=== PATIENT | female | born 1960 | race Caucasian/White ===

== ENCOUNTER → 2017-01-07 | Outpatient (CLI) | payer MEDICARE | LOC: SL 11:02 | DX: G43.709 Chronic migraine without aura, not intractable, without status migrainosus (principal); G47.30 Sleep apnea, unspecified; I10 Essential (primary) hypertension; E78.5 Hyperlipidemia, unspecified; Z82.49 Family history of ischemic heart disease and other diseases of the circulatory system | CPT/HCPCS: G0399-TC ==

== ENCOUNTER → 2017-01-26 | Outpatient (CLI) | payer MEDICARE ==
[2017-01-26 09:10] LABS: BUN 15 mg/dL (7-18)
[2017-01-26 09:14] LABS: GFR (ESTIMATED) 74 ML/MIN (59-)
--- NOTE | 2017-01-27 15:18 | RADIOLOGY REPORT PS360 ---
MRA-HEAD W/O HISTORY: CHRONIC MIGRAINE, FAMILY HX BRAIN ANEURYSM Patient Age: 56 years: Female Ordering Physician: ABBY CRUZ TECHNIQUE: 2-D TOF MRA brain. 3-D Volume rendering reconstruction images performed on MRI workstation with horizontal and vertical rotation vascular image sets included. In addition to raw data and thick MIPP mages COMPARISON :None available FINDINGS . Good visualization [place] and intracranial arterial structures. . No aneurysm. No vascular malformation evident. Right & left carotid siphon appear normal. Slightly ectatic but with normal normal branching of the internal carotid arteries bilaterally. Normal middle cerebral artery on] bilaterally. The vessels in the sylvian fissure region nicely visualized and unremarkable. . Anterior cerebral arteries patent bilaterally with patent A1 segment bilaterally. Tiny anterior communicating artery satisfactory factory. Left vertebral artery is larger than the right. These join to form the normal appearing basilar artery.. #The right posterior cerebral artery merely arises from the right posterior communicating artery with minimal contribution from the basilar artery as well. The left posterior cerebral artery abdomen is mainly supplied from the basilar artery, with little if any contribution from posterior communicating. IMPRESSION Normal MRI of brain. Good quality study. No evidence of aneurysm,. No vascular malformation. Minor Anatomical variations details at [place] as discussed in text
--- NOTE | 2017-01-27 15:18 | RADIOLOGY REPORT PS360 ---
MRA-HEAD W/O HISTORY: CHRONIC MIGRAINE, FAMILY HX BRAIN ANEURYSM Patient Age: 56 years: Female Ordering Physician: ABBY CRUZ TECHNIQUE: 2-D TOF MRA brain. 3-D Volume rendering reconstruction images performed on MRI workstation with horizontal and vertical rotation vascular image sets included. In addition to raw data and thick MIPP mages COMPARISON :None available FINDINGS . Good visualization [place] and intracranial arterial structures. . No aneurysm. No vascular malformation evident. Right & left carotid siphon appear normal. Slightly ectatic but with normal normal branching of the internal carotid arteries bilaterally. Normal middle cerebral artery on] bilaterally. The vessels in the sylvian fissure region nicely visualized and unremarkable. . Anterior cerebral arteries patent bilaterally with patent A1 segment bilaterally. Tiny anterior communicating artery satisfactory factory. Left vertebral artery is larger than the right. These join to form the normal appearing basilar artery.. #The right posterior cerebral artery merely arises from the right posterior communicating artery with minimal contribution from the basilar artery as well. The left posterior cerebral artery abdomen is mainly supplied from the basilar artery, with little if any contribution from posterior communicating. IMPRESSION Normal MRI of brain. Good quality study. No evidence of aneurysm,. No vascular malformation. Minor Anatomical variations details at [place] as discussed in text
--- NOTE | 2017-01-27 15:38 | RADIOLOGY REPORT PS360 ---
MRI-BRAIN W/WO HISTORY: CHRONIC MIGRAINE, FAMILY HX BRAIN ANEURYSMhistory of brain aneurysm. Headache one year. Migraine headaches with pain both eyes. Hypertension Patient Age: 56 years: Female Ordering Physician: ABBY CRUZ TECHNIQUE: : Precontrast Multiplanar FLAIR, T1, T2 weighted images along with axial diffusion/ADC imaging performed on 1.5 T. Siemens, MRI. Postcontrast imaging [id number] ProHance T1-weighted images axial & coronal plane performed COMPARISON :None FINDINGS No mass lesion. No abnormal areas of enhancement.. . Cerebral hemispheres reveal no lesions. No deep white matter signal abnormalities. Diffusion images reveal no recent ischemia or infarct. No subdural collections evident. CP angles appear clear with no abnormal enhancement. 7/8 nerve and IACs symmetric mastoid air cells clear. The cranial cervical junction is normal. Stephen appears normal. Sella unremarkable. Ventricles and basal cistern satisfactory. At the posterior fossa there is a small lacunar generous perivascular space at the inferior left cerebellar hemisphere axial image 7. It measures up to 5 mm x 3.5 mm size. There is lack of gliosis about this area this may be a a generous perivascular space or tiny mural glial cyst rather than lacunar infarct due to lack of gliosis.. Barely appreciable. Does not enhance and not of significant concern. The orbits appear satisfactory. The visualized portions of paranasal sinuses are clear.. Prominent deviation nasal septum convexity to the left with septal spur to the left narrowing the left nasal airway. No tigre bullosa on right which enlarges the right turbinate. Incidental observations Scalp and skull unremarkable. IMPRESSION 1. No mass lesions. No abnormal areas of enhancement. No significant appearing findings 2. Normal cerebral hemispheres bilaterally.. No deep white matter high signal foci 3. No significant findings of the posterior fossa. Only very Minor observation: At Inferior left cerebellar hemisphere only note a tiny 3 x 5 mm likely prominent perivascular space, less likely tiny neuralglial cyst; & doubt small lacunae (since lack of gliosis here..). I do not believe this is of significance but if the patient should have progressive symptoms a follow-up in one year may be of benefit to confirm in indolent feature. 4. Incidental observation: Prominent deviation nasal septum to the left, with septal spur to the left. Features narrow the left nasal airway. No sinusitis evident
== END ==
LOC: RAD 08:45
PROVIDERS: Specialist
DX: G43.709 Chronic migraine without aura, not intractable, without status migrainosus (principal); G47.30 Sleep apnea, unspecified; I10 Essential (primary) hypertension; E78.5 Hyperlipidemia, unspecified; Z82.49 Family history of ischemic heart disease and other diseases of the circulatory system
CPT/HCPCS: A9576